=== PATIENT | male | born 1950 | race Caucasian/White ===

== ENCOUNTER 2018-04-19 06:30 | Inpatient (IN) | payer MEDICARE, OTHER ==
[2018-04-13 14:23] LABS: BASOPHILS # (AUTO) 0.1 X10'3 (0-0.2); BASOPHILS % (AUTO) 0.7 % (0-1); EOSINOPHILS # (AUTO) 0.2 X10'3 (0-0.9); LYMPHOCYTES # (AUTO) 2.2 X10'3 (1.1-4.8); LYMPHOCYTES % (AUTO) 22.1 % (21-51); MEAN CORPUSCULAR VOLUME 94.3 FL (78-98); MEAN PLATELET VOLUME 7.9 FL (7.4-10.4); MONOCYTES # (AUTO) 0.6 X10'3 (0-0.9); MONOCYTES % (AUTO) 5.6 % (2-12); NEUTROPHILS % (AUTO) 69.6 % (42-75); PRE OP HEMATOCRIT 46.6 % (42.0-52.0); PRE OP HEMOGLOBIN 15.8 g/dL (14.0-17.9); PRE OP PLATELET COUNT 264 X10'3 (140-440); RED BLOOD COUNT 4.94 X10'6 (4.70-6.10); RED CELL DISTRIBUTION WIDTH 13.2 % (11.5-14.5)
[2018-04-13 14:33] LABS: PRE OP PROTIME 10.5 SECONDS (9.0-12.0)
[2018-04-13 14:44] LABS: ALBUMIN 4.2 G/DL (3.4-5.0); ALBUMIN/GLOBULIN RATIO 1.2 (1.1-1.5); ALKALINE PHOSPHATASE 91 IU/L (46-116); BLOOD UREA NITROGEN 16 MG/DL (7-18); BUN/CREATININE RATIO 15.4 (5.4-32.0); CALCIUM 9.5 MG/DL (8.5-10.1); CHLORIDE 102 MMOL/L (99-107); CREATININE 1.04 MG/DL (0.60-1.10); PRE OP ALT 29 U/L (30-65); PRE OP ANION GAP 9 (8-16); PRE OP AST 27 U/L (10-37); PRE OP BILIRUB, TOTAL 0.6 MG/DL (0.0-1.0); PRE OP GLUCOSE 106 MG/DL (70-104); PRE OP POTASSIUM 3.8 MMOL/L (3.4-5.1); PRE OP SODIUM 141 MMOL/L (135-145); TOTAL CARBON DIOXIDE 30.3 MMOL/L (24-32); TOTAL PROTEIN 7.7 G/DL (6.4-8.2); eGFR 72 ML/MIN
[2018-04-19] VITALS (22 sets, daily range): BP systolic 94–138; BP diastolic 53–82
[~2018-04-19] VITALS: Ht 170.2 cm; Wt 80.6 kg
[~2018-04-19 06:30] MED LIST: AMLO2.5T2 PO; Cefazolin 2GM/50ML dext iso,osmotic IVPB IV ONE; DOCUMENT DATE & TIME OF BETA-BLOCKER PO ONE; METO50TA7 PO; QUIN20TA PO; TRAM50TA2 PO; acetaminophen 325mg tablet PO ONE; famotidine 20mg tablet PO ONE; gabapentin 300mg capsule PO ONE; metoclopramide 5 mg/ml inj IV ONE; oxyCODONE SR 10mg (sust. release) tab -2 tabs (20mg) PO ONE; ringers solution, lacted 1,000 ML IV SCH; tranexamic acid inj. 1,000 MG in normal saline 100ml IV soln 90 ML IV ONE; vancomycin inj 1,500 MG in normal saline 300ml IV soln IV ONE
[2018-04-19] MEDS ORDERED: ketorolac trometh. 30mg/ml inj. ONE (09:10)
[2018-04-19] MEDS ORDERED: morphine 10mg/ml inj. ONE (09:10)
[2018-04-19] MEDS ORDERED: vancomycin 1,000mg inj ONE (09:10)
[2018-04-19] MEDS ORDERED: ROPIVAcaine 0.5% (5mg/ml) 30ml vial ONE ×3 (09:11→12:14)
[2018-04-19] MEDS ORDERED: ceFAZolin 1000mg inj ONE (09:11)
[2018-04-19] MEDS ORDERED: tetracaine 1% (10mg/ml) pres. free inj. ONE (09:12)
[2018-04-19] MEDS ORDERED: cloNIDine hcl/PF 100mcg/ml inj ONE (09:12)
[2018-04-19] MEDS ORDERED: BUPIVAcaine/PF 7.5mg/ml (0.75%) 10ml vial ONE (09:12)
[2018-04-19] MEDS ORDERED: morphine /PF 1mg/ml 10ml inj. ONE (09:18)
[2018-04-19] MEDS ORDERED: fentaNYL/PF 50MCG/1 ML 2ML syringe ONE (09:18)
[2018-04-19] MEDS ORDERED: MIDAZolam 1mg/ml 10ml vial ONE (09:18)
[2018-04-19] MEDS ORDERED: dexamethasone sod phosphate 4mg/ml inj. ONE (09:24)
[2018-04-19] MEDS ORDERED: LIDOcaine 2% (20mg/ml) 5ml vial ONE (09:59)
[2018-04-19] MEDS ORDERED: propofol inj 20 ML IV ONE ×2 (09:59)
[2018-04-19] MEDS ORDERED: calcium chloride 100 MG/1 ML inj IV ONE (10:17)
[2018-04-19] MEDS ORDERED: ringers solution, lacted 1,000 ML IV SCH (10:26)
[2018-04-19] MEDS ORDERED: ondansetron/PF 4mg/2ml inj IV PRN ×2 (10:30)
[2018-04-19] MEDS ORDERED: enalaprilat dihydrate 2.5mg/2ml vial IV PRN (10:30)
[2018-04-19] MEDS ORDERED: hydrALAZINE 20mg/ml inj. IV PRN (10:30)
[2018-04-19] MEDS ORDERED: diphenhydrAMINE 50 mg/ml inj IV PRN (10:30)
[2018-04-19] MEDS ORDERED: morphine 4 MG/ML inj SYRINge IV PRN ×2 (10:30)
[2018-04-19] MEDS ORDERED: meperidine/PF 25mg/ml syringe IV PRN ×2 (10:30)
[2018-04-19] MEDS ORDERED: diphenhydrAMINE 25mg capsule PO PRN ×2 (12:40)
[2018-04-19] MEDS ORDERED: oxyCODONE IR 5mg (immed. release) tablet PO PRN (12:40)
[2018-04-19] MEDS ORDERED: bisacodyl 10mg suppository rectal RC PRN (12:40)
[2018-04-19] MEDS ORDERED: magnesium hydroxide 30ml (MOM) UD suspension PO PRN (12:40)
[2018-04-19] MEDS ORDERED: acetaminophen 325mg tablet PO PRN (12:40)
[2018-04-19] MEDS ORDERED: HYDROmorphone inj. 0.5 MG/0.5 ML DISP.SYRIN IV PRN ×2 (12:40)
[2018-04-19] MEDS ORDERED: tranexamic acid inj. 800 MG in normal saline 100ml IV soln 100 ML IV ONE (15:40)
[2018-04-19] MEDS: potassium cl 20mEq in 1/2 NS 1,000 ML IV SCH ×3 (15:52→23:21)
[2018-04-19] MEDS ORDERED: traMADol 50MG tablet PO PRN (16:15)
[2018-04-19] MEDS: gabapentin 300mg capsule PO SCH ×2 (17:52→21:30)
[2018-04-19] MEDS: acetaminophen 325mg tablet PO SCH ×2 (17:52→21:29)
[2018-04-19] MEDS: ceFAZolin 1GM/D5W- ADD-VANTAGE 50 ML IV SCH (18:01)
[2018-04-19] MEDS: ondansetron/PF 4mg/2ml inj IV PRN (18:26)
[2018-04-19] MEDS ORDERED: vancomycin/NS 1 GM ADD-VANTAGE 250 ML IV SCH ×2 (20:00→23:00)
[2018-04-19] MEDS: metoprolol succinate 25mg (24-HOUR) SR. Tablet PO SCH (21:00)
[2018-04-19] MEDS: sennosides 8.6mg tablet PO SCH (21:00)
[2018-04-19] MEDS: lisinopril 20mg tablet PO SCH (21:30)
[2018-04-20] VITALS (7 sets, daily range): BP systolic 98–152; BP diastolic 54–78
[2018-04-20] MEDS: ceFAZolin 1GM/D5W- ADD-VANTAGE 50 ML IV SCH (01:20)
[2018-04-20] MEDS: acetaminophen 325mg tablet PO SCH ×4 (02:00→20:13)
[2018-04-20] MEDS ORDERED: HYDROmorphone 1 mg/ml syringe ONE (02:16)
[2018-04-20] MEDS ORDERED: HYDROmorphone 1 mg/ml syringe IV PRN (02:25)
[2018-04-20 06:00] LABS: BASOPHILS % (AUTO) 0.1 % (0-1); EOSINOPHILS # (AUTO) 0.1 X10'3 (0-0.9); EOSINOPHILS % (AUTO) 1.1 % (0-6); HEMATOCRIT 30.2 % (42.0-52.0); HEMOGLOBIN 10.3 g/dl (14.0-17.9); LYMPHOCYTES # (AUTO) 1.1 X10'3 (1.1-4.8); LYMPHOCYTES % (AUTO) 11.1 % (21-51); MEAN CORPUSCULAR VOLUME 94.2 FL (78-98); MEAN PLATELET VOLUME 7.7 FL (7.4-10.4); MONOCYTES % (AUTO) 10.4 % (2-12); NEUTROPHILS # (AUTO) 7.7 X10'3 (1.8-7.7); NEUTROPHILS % (AUTO) 77.3 % (42-75); PLATELET COUNT 165 X10'3 (140-440); RED BLOOD COUNT 3.21 X10'6 (4.70-6.10); RED CELL DISTRIBUTION WIDTH 12.9 % (11.5-14.5); WHITE BLOOD COUNT 9.9 X10'3 (4.5-11.0)
[2018-04-20] MEDS: metoprolol succinate 25mg (24-HOUR) SR. Tablet PO SCH ×3 (07:58→20:14)
[2018-04-20] MEDS: amLODIPine 5mg tablet PO SCH (07:58)
[2018-04-20] MEDS: gabapentin 300mg capsule PO SCH ×3 (07:58→21:01)
[2018-04-20] MEDS: ondansetron/PF 4mg/2ml inj IV PRN (07:59)
[2018-04-20] MEDS: lisinopril 20mg tablet PO SCH ×2 (07:59→20:14)
[2018-04-20] MEDS: enoxaparin 40mg/0.4ml syringe SQ SCH (07:59)
[2018-04-20] MEDS: oxyCODONE IR 5mg (immed. release) tablet PO PRN ×3 (11:26→20:06)
[2018-04-20] MEDS: potassium cl 20mEq in 1/2 NS 1,000 ML IV SCH ×2 (12:04→20:38)
[2018-04-20] MEDS: HYDROmorphone 1 mg/ml syringe IV PRN (14:51)
[2018-04-20] MEDS: sennosides 8.6mg tablet PO SCH (20:13)
[2018-04-20] MEDS: celeCOXIB 100mg capsule PO SCH (20:13)
[2018-04-21] MEDS: oxyCODONE IR 5mg (immed. release) tablet PO PRN ×3 (01:34→10:16)
[2018-04-21] MEDS: acetaminophen 325mg tablet PO SCH ×2 (01:35→08:26)
[2018-04-21 06:00] VITALS: BP 165/88
[2018-04-21] MEDS: HYDROmorphone 1 mg/ml syringe IV PRN (07:35)
[2018-04-21 07:38] LABS: BASOPHILS % (AUTO) 0.3 % (0-1); EOSINOPHILS # (AUTO) 0.1 X10'3 (0-0.9); EOSINOPHILS % (AUTO) 0.6 % (0-6); HEMATOCRIT 35.7 % (42.0-52.0); HEMOGLOBIN 12.3 g/dl (14.0-17.9); LYMPHOCYTES # (AUTO) 1.5 X10'3 (1.1-4.8); LYMPHOCYTES % (AUTO) 16.4 % (21-51); MEAN CORPUSCULAR HEMOGLOBIN 32.7 PG (27.0-31.0); MEAN CORPUSCULAR HGB CONC 34.4 % (33.0-36.5); MEAN CORPUSCULAR VOLUME 95.1 FL (78-98); MEAN PLATELET VOLUME 8.9 FL (7.4-10.4); MONOCYTES # (AUTO) 1.3 X10'3 (0-0.9); MONOCYTES % (AUTO) 14.7 % (2-12); NEUTROPHILS # (AUTO) 6.2 X10'3 (1.8-7.7); PLATELET COUNT 192 X10'3 (140-440); RED BLOOD COUNT 3.75 X10'6 (4.70-6.10); RED CELL DISTRIBUTION WIDTH 12.3 % (11.5-14.5); WHITE BLOOD COUNT 9.1 X10'3 (4.5-11.0)
[2018-04-21] MEDS: gabapentin 300mg capsule PO SCH ×2 (08:25→13:01)
[2018-04-21] MEDS: lisinopril 20mg tablet PO SCH (08:25)
[2018-04-21] MEDS: celeCOXIB 100mg capsule PO SCH (08:25)
[2018-04-21] MEDS: metoprolol succinate 25mg (24-HOUR) SR. Tablet PO SCH ×2 (08:25→13:01)
[2018-04-21] MEDS: amLODIPine 5mg tablet PO SCH (08:25)
[2018-04-21] MEDS: enoxaparin 40mg/0.4ml syringe SQ SCH (08:26)
[2018-04-21 09:58] VITALS: BP 163/81
[2018-04-21] MEDS ORDERED: acetaminophen 325mg tablet PO PRN (12:40)
[2018-04-21] MEDS ORDERED: HYDROcodone/acetaminophen 10/325mg tab PO PRN (12:50)
[2018-04-21] MEDS: HYDROcodone/acetaminophen 10/325mg tab PO PRN ×2 (13:01→16:36)
[2018-04-21] MEDS ORDERED: ENOX40SY7 SUBCUT (16:27)
== END 2018-04-21 16:53 | disposition home or self-care (01) | DRG 470 ==
LOC: PAS IN 06:30 → EDSTATUS 10:30 → ORTHO 4S 14:20
PROVIDERS: ADMIT Orthopaedic Surgery; ATTEND Orthopaedic Surgery
PROC: 3E0T3BZ Introduction of Anesthetic Agent into Peripheral Nerves and Plexi, Percutaneous Approach (ICD-10-PCS; 2018-04-19)
PROC: 0SRC069 Replacement of Right Knee Joint with Oxidized Zirconium on Polyethylene Synthetic Substitute, Cemented, Open Approach (ICD-10-PCS; principal; 2018-04-19 09:20)
DX: M17.11 Unilateral primary osteoarthritis, right knee (principal); I10 Essential (primary) hypertension; M10.9 Gout, unspecified; Z88.6 Allergy status to analgesic agent; Z79.899 Other long term (current) drug therapy
CPT/HCPCS: 0232T; 36415; 80053; 85025; 85610; 85730; 87070; 93005; 97110; 97116; 97161; A6255; A6455; A7000; C1713; C1758; C1776; J0690; J0735; J1100; J1170; J1650; J1885; J2001; J2250; J2270; J2274; J2405; J2704; J2765; J2795; J3010; J3370; J3490; J7030; J7120

== ENCOUNTER 2018-04-23 11:30 | Emergency (ER) | payer MEDICARE, MEDICAID ==
[~2018-04-23] VITALS: Ht 170.2 cm; Wt 81.8 kg
[~2018-04-23 11:30] MED LIST changes: -Cefazolin 2GM/50ML dext iso,osmotic IVPB IV ONE; -DOCUMENT DATE & TIME OF BETA-BLOCKER PO ONE; +ENOX40SY7 SUBCUT; -acetaminophen 325mg tablet PO ONE; -famotidine 20mg tablet PO ONE; -gabapentin 300mg capsule PO ONE; -metoclopramide 5 mg/ml inj IV ONE; -oxyCODONE SR 10mg (sust. release) tab -2 tabs (20mg) PO ONE; -ringers solution, lacted 1,000 ML IV SCH; -tranexamic acid inj. 1,000 MG in normal saline 100ml IV soln 90 ML IV ONE; -vancomycin inj 1,500 MG in normal saline 300ml IV soln IV ONE
[2018-04-23] MEDS ORDERED: HYDR-3965 PO (13:30)
[2018-04-23 15:28] VITALS: BP 164/87
== END 2018-04-23 15:30 | disposition home or self-care (01) ==
LOC: ER 11:31
DX: S70.11XA Contusion of right thigh, initial encounter (principal); T81.89XA Other complications of procedures, not elsewhere classified, initial encounter; I10 Essential (primary) hypertension; Z88.8 Allergy status to other drugs, medicaments and biological substances; Z79.899 Other long term (current) drug therapy; X58.XXXA Exposure to other specified factors, initial encounter; Y93.89 Activity, other specified; Y92.89 Other specified places as the place of occurrence of the external cause; Y99.8 Other external cause status
CPT/HCPCS: 93971; 99284

== ENCOUNTER 2024-10-06 10:08 | Emergency (ER) | payer MEDICARE, MEDICAID ==
[~2024-10-06] VITALS: Ht 170.2 cm; Wt 93.2 kg
[~2024-10-06 10:08] MED LIST changes: +HYDR-3965 PO; -TRAM50TA2 PO
[2024-10-06 12:25] VITALS: BP 150/82; PULSE 68; RESP 16; TEMP 97.7; O2SAT 98
== END 2024-10-06 12:27 | disposition home or self-care (01) ==
LOC: ER 10:09
DX: L76.21 Postprocedural hemorrhage of skin and subcutaneous tissue following a dermatologic procedure (principal); I10 Essential (primary) hypertension; Z88.6 Allergy status to analgesic agent; Z79.899 Other long term (current) drug therapy
CPT/HCPCS: 99281; A6449